=== PATIENT | female | born 1930 | race Caucasian/White ===

== ENCOUNTER 2017-06-10 09:29 | Observation (INO) | payer MEDICARE, BC ==
[2017-06-10] MEDS ORDERED: Sodium Chloride 0.9% 1,000 ML IV SCH ×2 (10:30→15:45)
[2017-06-10] MEDS ORDERED: Midazolam 1 MG/ML 2 ML SDV IVPUSH ONE (10:34)
[2017-06-10] MEDS ORDERED: cefTRIAXone 1,000 MG in Sodium Chloride 0.9% 50 ML IV SCH (10:45)
[2017-06-10] MEDS ORDERED: cefTRIAXone 1,000 MG VIAL IV ONE (11:00)
[2017-06-10] MEDS ORDERED: Azithromycin 500 MG in Sodium Chloride 0.9% 250 ML IV SCH (11:15)
[2017-06-10] MEDS: METOPROLOL SUCCINATE 50 MG PO SCH (11:40)
[2017-06-10] MEDS ORDERED: Ondansetron 4 MG Tab.DIS PO PRN (11:51)
[2017-06-10] MEDS ORDERED: Temazepam 7.5 MG Cap PO PRN (11:51)
--- NOTE | 2017-06-10 13:35 | CT ---
INDICATION: Delirium, urosepsis, confused. CT HEAD WITHOUT CONTRAST: Serial contiguous 2.5 and 5-mm sections were obtained through the brain without contrast, 06/10/2017, and compared with 04/30. Total Exam DLP = 845.81 mGy-cm. Minimal thickening of the lining is noted at the right maxillary antrum. There is thickening of the lining of one ethmoidal air cell. Paranasal sinuses were otherwise well aerated and unremarkable. Mastoid air cells were well aerated. No definite cranial abnormality was seen. A mild degree of nasal septal deviation to the right is noted. Calcifications are noted in the vertebral arteries and internal carotid arteries. No shift of midline structures was identified. Ventricles are slightly more prominent than on the previous study, compatible with progressive central atrophy of mild to moderate degree. There is some minimal periventricular white matter decrease compatible with minimal microvascular disease. No finding to suggest an acute abnormality, such as a bleeding site or hematoma was identified. No finding to strongly suggest an acute thrombotic CVA was seen. Orbits appear to be unremarkable. IMPRESSION: 1. Progressive central atrophy. 2. Minimal microvascular disease, also slightly progressive. 3. Arterial calcifications, as previously. 4. Minimal findings in the paranasal sinuses. Report was called to Dr. Molina at 1120 hours, 06/10/2017. [facility] CENTERFlorina
[2017-06-10] MEDS: Losartan 25 MG Tab PO SCH (15:02)
[2017-06-10] MEDS: Enoxaparin 30 MG/0.3 ML Syringe SUBCUT SCH (15:09)
[2017-06-10] MEDS ORDERED: Mirtazapine 15 MG Tab PO SCH (16:00)
[2017-06-10] MEDS ORDERED: traMADol 50 MG Tab PO PRN (16:17)
[2017-06-10] MEDS ORDERED: Metoprolol Succinate 50 MG Tab.ER PO SCH (16:30)
[2017-06-10] MEDS ORDERED: Losartan 50 MG Tab PO SCH (16:30)
--- NOTE | 2017-06-10 16:35 | CR ---
INDICATION: Delirium, confusion, urosepsis. CHEST: An AP upright view of the chest was obtained 06/10/2017 and revealed apparent necklace or apparel producing artifact overlying the upper-most lung - apical lung. The heart is enlarged. The aorta is somewhat tortuous with minimal calcification in the arch. A definite active infiltrate or effusion was not identified. Impingement is noted at the right shoulder joint with sclerosis of the undersurface of the acromion. Degenerative changes of mild to moderate degree are noted at the glenohumeral joints bilaterally. Prominence of the superior mediastinum on the right is likely due to either an azygos lobe with minimal infiltration or prominent brachiocephalic vessels in that area. This appearance was present previously and is simply emphasized by the AP positioning. There does appear to be a significant increase in heart size compared with 07/24/2009. IMPRESSION: No definite acute process. MTDD
[2017-06-10] MEDS ORDERED: Metoprolol Tartrate 50 MG Tab PO ONE (16:45)
[2017-06-10] MEDS ORDERED: QUEtiapine 25 MG Tab PO ONE (17:23)
--- NOTE | 2017-06-10 17:30 | PCM.HP ---
H&P History of Present Illness - General Date of Service: 06/10/17 Admit Problem/Dx: Admission Diagnosis/Problem Admission Diagnosis/Problem Pneumonia - History of Present Illness Initial Comments - Free Text/Narative: 86-year-old female brought in because of chills. The family went to [facility] today to go for physical therapy, and she complains of feeling cold and was having records. He also noted that she confused. Although she's had a slow mental decline, she has remained very sharp and independent including driving. Today she was making no sense and was markedly confused, using a cupped, hair. She does no seem to recognize family. There's been no cough no chest pain or shortness of breath. She has been treated for UTI and has completed a recent course of abx. She has a history of type 2 diabetes, hypertension that been very stable. No previous strokes or cardio vascular disease. - Related Data Allergies/Adverse Reactions: Allergies Allergy/AdvReac Type Severity Reaction Status Date / Time lisinopril Allergy Unknown Other Verified 06/10/17 09:49 Home Medications: Home Meds Allopurinol [Zyloprim] 100 mg PO DAILY PRN 06/10/17 [History] Citalopram Hydrobromide [Celexa] 20 mg PO DAILY 06/10/17 [History] Cyanocobalamin (Vitamin B12) [Vitamin B12] 1,000 mcg PO DAILY 06/10/17 [History] Glimepiride [Amaryl] 1 mg PO WITHBREAKFAST 06/10/17 [History] Losartan [Cozaar] 25 mg PO DAILY 06/10/17 [History] Metoprolol Succinate 50 mg PO DAILY 06/10/17 [History] Mirtazapine [Remeron] 7.5 mg PO BEDTIME 06/10/17 [History] Omeprazole [Omeprazole] 20 mg PO ACBREAKFAST 06/10/17 [History] metFORMIN HCl [Metformin HCl] 500 mg PO WITHBREAKFAST 06/10/17 [History] traMADol [Ultram] 25 mg PO DAILY PRN 06/10/17 [History] Past Medical History HEENT History: Reports: Hard of Hearing Cardiovascular History: Reports: Afib, High Cholesterol, Hypertension Respiratory History: Reports: Other (See Below) Other Respiratory History: Pt was diagnosed with pneumonia in the ER Gastrointestinal History: Reports: Diverticulosis, Other (See Below) Other Gastrointestinal History: Diaphramatic Hernia Genitourinary History: Reports: Other (See Below) Other Genitourinary History: UTI last week and was diagnosed 2.5 weeks ago. Pt was given antibiotics and finished antibiotics last week. 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 - Infectious Disease History Infectious Disease History: Reports: Mumps - Past Surgical History GI Surgical History: Reports: Colonoscopy Social & Family History - Family History Family Medical History: Noncontributory - Tobacco Use Smoking Status *Q: Never Smoker Second Hand Smoke Exposure: No - Caffeine Use Caffeine Use: Reports: Coffee - Recreational Drug Use Recreational Drug Use: No H&P Review of Systems - Review of Systems: Review Of Systems: ROS reveals no pertinent complaints other than HPI. Exam - Exam Exam: See Below - Vital Signs Vital Signs: Last Vital Signs Temp 99.2 F 06/10/17 15:50 Pulse 102 H 06/10/17 16:43 Resp 16 06/10/17 15:50 BP 174/110 H 06/10/17 16:43 Pulse Ox 96 06/10/17 15:50 Weight: 59.874 kg - Exam General: Alert, Oriented, 4 HEENT: PERRLA, Hearing Intact, Mucosa Moist & [place], Nares Patent, Normal Nasal Septum, Posterior Pharynx Clear, Conjunctiva Clear, EOMI, EACs Clear, TMs Clear Neck: Supple, Trachea Midline, 2 Lungs: Clear to Auscultation, Normal Respiratory Effort Cardiovascular: Regular Rate, Regular Rhythm GI/Abdominal Exam: Normal Bowel Sounds, Soft, Non-Tender, No Organomegaly, No Distention, No Abnormal Bruit, No Mass, Pelvis Stable (Female) Exam: Normal Bimanual Exam, Deferred Rectal (Female) Exam: Deferred Back Exam: Normal Inspection, Full Range of Motion, NT Extremities: Normal Inspection, Normal Range of Motion, Non-Tender, No Pedal Edema, Normal Capillary Refill Skin: Warm, Dry, Intact Neurological: Cranial Nerves Intact, Reflexes Equal Bilateral Neuro Extensive - Mental Status: Alert, Oriented x3, Normal Mood/Affect, Normal Cognition Neuro Extensive - Motor, Sensory, Reflexes: CN II-XII Intact, Normal Reflexes Psychiatric: Alert, Hallucinations - Patient Data Result Diagrams: 06/10/17 09:58 06/10/17 09:58 *Q Meaningful Use (ADM) - VTE *Q VTE Criteria *Q: - Stroke *Q Stroke Criteria *Q: - AMI *Q AMI Criteria *Q: - Problem List (1) Delirium SNOMED Code(s): 2913898 ICD Code: R41.0 - DISORIENTATION, UNSPECIFIED Status: Acute Current Visit : Yes (2) HTN (hypertension) SNOMED Code(s): 75199963 ICD Code: I10 - ESSENTIAL (PRIMARY) HYPERTENSION Status: Acute Current Visit: Yes Qualifiers: Hypertension type: essential hypertension Qualified Code(s): I10 - Essential (primary) hypertension (3) DM2 (diabetes mellitus, type 2) SNOMED Code(s): 90892685 ICD Code: E11.9 - TYPE 2 DIABETES MELLITUS WITHOUT COMPLICATIONS Status: Acute Current Visit: Yes (4) Rigors SNOMED Code(s): 62843369 ICD Code: R68.89 - OTHER GENERAL SYMPTOMS AND SIGNS Status: Acute Current Visit: Yes (5) CHF (congestive heart failure) SNOMED Code(s): 01604874 ICD Code: I50.9 - HEART FAILURE, UNSPECIFIED Status: Acute Current Visit : Yes Qualifiers: Congestive heart failure type: unspecified Congestive heart failure chronicity: unspecified Qualified Code(s): I50.9 - Heart failure, unspecified Problem List Initiated/Reviewed/Updated: Yes Orders Last 24hrs: Active Orders 24 hr Category Date Time Status Brain wo Cont [MR] Routine Exams 06/10/17 13:05 Taken CBC WITH AUTO DIFF [HEME] AM Lab 06/11/17 05:11 Ordered CRP [C-REACTIVE PROTEIN] [CHEM] Routine Lab 06/10/17 17:22 Ordered INFLUENZA A+B AG SCREEN [RM] Stat Lab 06/10/17 17:22 Uncollected TROPONIN I [CHEM] Routine Lab 06/10/17 17:22 Ordered Citalopram [Celexa] Med 06/11/17 09:00 Active 20 mg PO DAILY Glimepiride [Amaryl] Med 06/11/17 08:00 Active 1 mg PO WITHBREAKFAST Mirtazapine [Remeron] Med 06/10/17 21:00 Active 7.5 mg PO BEDTIME Omeprazole [Omeprazole] Med 06/11/17 07:30 Active 20 mg PO ACBREAKFAST QUEtiapine [SEROquel] Med 06/10/17 17:23 Once 25 mg PO ONETIME ONE cefTRIAXone [Rocephin] Med 06/11/17 11:00 Active 1,000 mg IV Q24H metFORMIN [Glucophage] Med 06/11/17 08:00 Active 500 mg PO WITHBREAKFAST Convert IV to Saline Lock [OM.PC] Routine Oth 06/10/17 16:28 Ordered Medication Orders Ceftriaxone Sodium (Rocephin) 1,000 mg IV Q24H [facility] Citalopram Hydrobromide (Celexa) 20 mg PO DAILY [facility] Enoxaparin Sodium (Lovenox) 30 mg SUBCUT Q24H [facility] Last Admin: 06/10/17 15:09 Dose: 30 mg Glimepiride (Amaryl) 1 mg PO WITHBREAKFAST [facility] Azithromycin 500 mg/ Sodium (Chloride) 250 mls @ 250 mls/hr IV Q24H [facility] Last Admin: 06/10/17 11:26 Dose: 250 mls/hr Levothyroxine Sodium (Levothyroxine) 25 mcg PO 0600 [facility] Losartan Potassium (Cozaar) 25 mg PO DAILY [facility] Last Admin: 06/10/17 15:02 Dose: 25 mg Metformin HCl (Glucophage) 500 mg PO WITHBREAKFAST [facility] Metoprolol Succinate (Toprol Xl) 50 mg PO DAILY [facility] Last Admin: 06/10/17 11:40 Dose: 50 mg Mirtazapine (Remeron) 7.5 mg PO BEDTIME [facility] Omeprazole 20 Mg Cap (*Ptom) 20 mg PO ACBREAKFAST [facility] Ondansetron HCl (Zofran Odt) 4 mg PO Q6H PRN PRN Reason: nausea, able to take PO Quetiapine Fumarate (Seroquel) 25 mg PO ONETIME ONE Stop: 06/10/17 17:24 Temazepam (Restoril) 7.5 mg PO BEDTIME PRN PRN Reason: Sleep Assessment/Plan Comment:: The chest x-ray reveals no acute process, but it could be congestive heart failure noted along with cardiomegaly.BNP is high. The CT was unremarkable with exception microvascular disease. MRI of the brain is been done. The source of infection, if any, is unclear. They sudden mental status symptoms change suggestive delirium is possibly due to infection, or cerebrovascular accident. I have discontinued IV fluids. I will give her cervical 25 g by mouth tonight one time, I will do a flu a and B, CRP and repeat a CBC and basic profile in morning. I've ordered for blood cultures and urine cultures. The official MRI report should be back in the morning to determine further course of action.
[2017-06-10] MEDS: MIRTAZAPINE 15 MG PO SCH (20:06)
[2017-06-10] MEDS ORDERED: Non-Formulary Medication 1 Each (Mirtazapine [Remeron] 7.5 MG) PO SCH (21:00)
[2017-06-11] MEDS: Levothyroxine 25 MCG Tab PO SCH (05:51)
[2017-06-11] MEDS: metFORMIN 500 MG Tab *PTOM PO SCH (07:33)
[2017-06-11] MEDS: GLIMEPIRIDE 2 MG PO SCH (07:34)
[2017-06-11] MEDS: Omeprazole 20 MG CAP *PTOM PO SCH (07:34)
[2017-06-11] MEDS: CITALOPRAM HYDROBROMIDE 40 MG PO SCH (08:57)
[2017-06-11] MEDS: METOPROLOL SUCCINATE 50 MG PO SCH (08:58)
[2017-06-11] MEDS: Losartan 25 MG Tab PO SCH (09:08)
[2017-06-11] MEDS ORDERED: cefTRIAXone 1,000 MG VIAL IV SCH (11:00)
[2017-06-11] MEDS ORDERED: Azithromycin 500 MG in Sodium Chloride 0.9% 250 ML IV SCH (11:15)
--- NOTE | 2017-06-11 11:56 | ER ---
DATE SEEN: 06/10/2017 TIME SEEN: Jennifer Ly was seen at 0935 hours this morning. /[id number] LINO/LOUIS
--- NOTE | 2017-06-11 13:41 | ER ---
DATE SEEN: 06/10/2017 HISTORY OF PRESENT ILLNESS: This 86-year-old woman, who lives at home at her residence and was noted to have confusion. Past medical history is significant for GERD, diabetes, gout, hypertension, depression, has pulmonary hypertension, presbycusis, hiatus hernia, dysthymia, and osteoarthritis. She has confusion and cannot tell any history to us. Family noted she was mumbling, she was worried about possible stroke or major infection. This morning, she woke up. She did not fall down, hit or hurt herself. She cannot tell me anything. She has a [place] score of 8. Eyes 4, verbal 2, motor 4. When I lift her arm, it does not fall in her face. PRIMARY EXAM: A. Airway is open and patent. B. Some rhonchi noted. Rales noted at the base of lungs posteriorly. C. Circulation, blood pressure 163/104, repeat 174/110, heart rate 102, respirations 16, oxygen saturation 96%, and temperature 37.3. Her daughter says she has not taken any of her medicines this morning. D. The patient has a [place] coma score of 10 with low moaning and verbal for a score of 2. The others are 4, eye is 4, and motor is 4. E. Patient Derm: No evidence for erythema, rash, lacerations, or cuts. SECONDARY SURVEY: HEENT: The patient is mumbling. She does not cooperate. Pupils do react to light. They have conjugate gaze. Eyegrounds are normal in appearance, except for aging. Hearing is indeterminate. She is mumbling, does not respond, occasionally will speak. She feels warm. NECK: No bruits. No masses in the neck. LUNGS: Rales noted in the lungs, bilateral posterior, anterior less. HEART: No irregularity. No murmur. ABDOMEN: Nontender. No guarding. No discomfort. 1+ pedal edema. MUSCULOSKELETAL: Deep tendon reflexes symmetrical, hypoactive in upper and lower extremities. NEUROLOGIC: Cranial nerves, difficult hearing, indeterminate. She cooperates with her eyes, but facial symmetry is intact. Gag is intact. Cranial nerves 2 through 12 intact with probable good hearing. She has fair muscle strength. Moves upper and lower extremities. IMAGING: CT of the head is with small vessel microvascular changes and age- related atrophy of the brain. No evidence for CVA. LABORATORY DATA: White count 6400, PMNs normal at 77, lymphs 16, and monos 5. Hemoglobin 15.6 and platelets 182,000. CMP; sodium 141, potassium 4.1, chloride 102, CO2 28, BUN 16, and creatinine 1.1. GFR 47. EGL-zv-tgzwsqznog ratio 14.5. Glucose 202. Troponin less than 0.017. BNP is 2753. TSH is 6.63. Urinalysis; cath specimen is moderate occult blood, 500 protein, few squamous, and few bacteria. ASSESSMENT AND PLAN: Chest x-ray suggests she has an infiltrate in the left lung. I plan to treat this infection. The patient given a dose of Rocephin IV. Her pressures came down with the use of her medicines. She had not taken her medicines this morning. Given a dose of 1 gram of ceftriaxone, citalopram 20 mg was given when she was admitted and enoxaparin for admission, glimepiride. She was given a dose of levothyroxine 25 mcg (new diagnosis of hypothyroidism). Urine culture is pending. Blood culture is pending. Other labs: C-reactive protein was ordered, but it is not on the chart. No evidence for urinary tract infection (this was surprising, thought she had urosepsis on initial evaluation). Free T3, free T4 performed. Results not back. C-reactive protein not back. EKG: Atrial fibrillation, borderline right axis. Heart rate 105. Nonspecific T-wave abnormalities in lateral leads. Patient status/message was left for Dr. Watkins for admission plan. The patient was started on antibiotics. /[id number] LINO/LOUIS
[2017-06-11] MEDS: Enoxaparin 30 MG/0.3 ML Syringe SUBCUT SCH (13:45)
[2017-06-11] MEDS: MIRTAZAPINE 15 MG PO SCH (20:48)
[2017-06-12] MEDS: Levothyroxine 25 MCG Tab PO SCH (05:53)
[2017-06-12] MEDS: GLIMEPIRIDE 2 MG PO SCH (08:07)
[2017-06-12] MEDS: Omeprazole 20 MG CAP *PTOM PO SCH (08:07)
[2017-06-12] MEDS: METOPROLOL SUCCINATE 50 MG PO SCH (08:08)
[2017-06-12] MEDS: metFORMIN 500 MG Tab *PTOM PO SCH (08:08)
[2017-06-12] MEDS: CITALOPRAM HYDROBROMIDE 40 MG PO SCH (08:09)
[2017-06-12] MEDS: Losartan 25 MG Tab PO SCH (08:10)
--- NOTE | 2017-06-12 10:37 | PCM.PN ---
- General Info Date of Service: 06/12/17 Admission Dx/Problem (Free Text): She states yesterday she had a little mild abdominal discomfort with deep inspiration but that's gone. She denies chest pain, fevers, chills, nasal congestion, ear pain. She has a little bit of a cough that's been their for a couple weeks. - Patient Data Vitals - Most Recent: Last Vital Signs Temp 97.7 F 06/12/17 08:00 Pulse 76 06/12/17 08:08 Resp 18 06/12/17 08:00 BP 164/107 H 06/12/17 08:10 Pulse Ox 99 06/12/17 08:00 Weight - Most Recent: 132 lb Lab Results Last 24 Hours: Laboratory Results - last 24 hr 06/11/17 06/11/17 06/12/17 Range/Units 16:33 20:57 06:32 POC Glucose 175 H (80-116) mg/dL Troponin I 0.192 H* 0.102 H* (<0.017-0.056) ng/mL Med Orders - Current: Current Medications Citalopram Hydrobromide (Celexa) 20 mg PO DAILY [facility] Last Admin: 06/12/17 08:09 Dose: 20 mg Enoxaparin Sodium (Lovenox) 30 mg SUBCUT Q24H [facility] Last Admin: 06/11/17 13:45 Dose: 30 mg Glimepiride (Amaryl) 1 mg PO WITHBREAKFAST [facility] Last Admin: 06/12/17 08:07 Dose: 1 mg Levothyroxine Sodium (Levothyroxine) 25 mcg PO 0600 [facility] Last Admin: 06/12/17 05:53 Dose: 25 mcg Losartan Potassium (Cozaar) 25 mg PO DAILY [facility] Last Admin: 06/12/17 08:10 Dose: 25 mg Metformin HCl (Glucophage) 500 mg PO WITHBREAKFAST [facility] Last Admin: 06/12/17 08:08 Dose: 500 mg Metoprolol Succinate (Toprol Xl) 50 mg PO DAILY [facility] Last Admin: 06/12/17 08:08 Dose: 50 mg Mirtazapine (Remeron) 7.5 mg PO BEDTIME [facility] Last Admin: 06/11/17 20:48 Dose: 7.5 mg Omeprazole 20 Mg Cap (*Ptom) 20 mg PO ACBREAKFAST [facility] Last Admin: 06/12/17 08:07 Dose: 20 mg Ondansetron HCl (Zofran Odt) 4 mg PO Q6H PRN PRN Reason: nausea, able to take PO Temazepam (Restoril) 7.5 mg PO BEDTIME PRN PRN Reason: Sleep Discontinued Medications Ceftriaxone Sodium (Rocephin) 1,000 mg IV ONETIME ONE Stop: 06/10/17 11:01 Last Admin: 06/10/17 11:11 Dose: 1,000 mg Ceftriaxone Sodium (Rocephin) 1,000 mg IV Q24H [facility] Last Admin: 06/11/17 10:24 Dose: 1,000 mg Sodium Chloride (Normal Saline) 1,000 mls @ 999 mls/hr IV ASDIRECTED [facility] Last Admin: 06/10/17 10:35 Dose: 999 mls/hr Azithromycin 500 mg/ Sodium (Chloride) 250 mls @ 250 mls/hr IV Q24H [facility] Last Admin: 06/10/17 11:26 Dose: 250 mls/hr Sodium Chloride (Normal Saline) 1,000 mls @ 100 mls/hr IV ASDIRECTED [facility] Last Admin: 06/10/17 15:51 Dose: 100 mls/hr Azithromycin 500 mg/ Sodium (Chloride) 250 mls @ 250 mls/hr IV Q24H [facility] Last Admin: 06/11/17 11:40 Dose: 250 mls/hr Metoprolol Tartrate (Lopressor) 50 mg PO ONETIME ONE Stop: 06/10/17 16:46 Last Admin: 06/10/17 16:43 Dose: 50 mg Midazolam HCl (Versed 1 Mg/Ml) 0.5 mg IVPUSH ONETIME ONE Stop: 06/10/17 10:35 Last Admin: 06/10/17 15:31 Dose: Not Given Mirtazapine (Remeron) 7.5 mg PO ONETIME [facility] Quetiapine Fumarate (Seroquel) 25 mg PO ONETIME ONE Stop: 06/10/17 17:24 Last Admin: 06/10/17 18:19 Dose: 25 mg Tramadol HCl (Ultram) 25 mg PO DAILY PRN PRN Reason: Pain - Exam General: Alert, Oriented Lungs: Clear to Auscultation, Normal Respiratory Effort Cardiovascular: Regular Rate, Regular Rhythm, No Murmurs Extremities: No Pedal Edema - Problem List & Annotations (1) Acute [place] SNOMED Code(s): 63103571 Code(s): I21.9 - ACUTE MYOCARDIAL INFARCTION, UNSPECIFIED Status: Acute Current Visit: Yes (2) Bronchitis SNOMED Code(s): 44612413 Code(s): J40 - BRONCHITIS, NOT SPECIFIED ACUTE OR CHRONIC Status: Acute Current Visit: Yes - Problem List Review Problem List Initiated/Reviewed/Updated: Yes - My Orders Last 24 Hours: My Active Orders 06/11/17 12:07 Accu Check [Blood Glucose Check, Bedside] [RC] BIDMEALS 06/11/17 12:08 EKG 12 Lead [EK] Routine 06/11/17 Dinner Consistent Carbohydrate Diet [DIET] - Plan Plan:: 1. Discharge to home on home health. 2. She is already on a beta justin and aspirin. 3. Andree-Jaime.
--- NOTE | 2017-06-12 10:51 | PCM.DCSUM1 ---
Discharge Summary - Hospital Course Free Text/Narrative:: Hospital course-patient was admitted had a CT and MRI of the head. Both showed age-related changes and signs of infarct. She was confused when she came in the evening with chills by the next morning she is asymptomatic. We will watch her for 48 hours and she remained asymptomatic. Chest x-ray showed no pneumonia urine showed no UTI. I believe there was a TSH done but Shaman slightly elevated at 6 in the ER doc started levothyroxine. I will stop back and have it rechecked in the clinic. Patient's troponin was slightly elevated. EKG showed atrial fibrillation no ST abnormalities. Newly diagnosis I can come up with was a small ID. She started a beta justin and aspirin. She did have a little bit of cough that's been there for a few weeks. I'll send her home on some Zithromax. Brief History: 86-year-old female brought in because of chills. The [place] went [place] to go for physical therapy, and she complains of feeling cold and was having records. He also noted that she confused. Although she's had a slow mental decline, she has remained very sharp and independent including driving. Today she was making no sense and was markedly confused, using a cupped , hair. She does no seem to recognize family. There's been no cough no chest pain or shortness of breath. She has been treated for UTI and has completed a recent course of abx. She has a history of type 2 diabetes, hypertension that been very stable. No previous strokes or cardio vascular disease. - Discharge Data Discharge Date: 06/12/17 Discharge Disposition: Home, Self-Care 01 Condition: Fair - Discharge Diagnosis/Problem(s) (1) Acute ID SNOMED Code(s): 85505049 ICD Code: I21.9 - ACUTE MYOCARDIAL INFARCTION, UNSPECIFIED Status: Acute Current Visit: Yes (2) Bronchitis SNOMED Code(s): 37085207 ICD Code: J40 - BRONCHITIS, NOT SPECIFIED ACUTE OR CHRONIC Status: Acute Current Visit: Yes - Patient Instructions Diet: Diabetic Diet Activity: As Tolerated Driving: Do Not Drive Showering/Bathing: May Shower Notify Provider of: Fever, Increased Pain, Swelling and Redness, Drainage, Nausea and/or Vomiting Other/Special Instructions: 1. Recheck with Dr. Kolb in 2 weeks. Appointment is already made. Check TSH with the appointment. 2. Home health tell manage medications, strengthening, home safety and also physical therapy in the home. - Discharge Plan Prescriptions/Med Rec: Azithromycin [Zithromax] 250 mg PO DAILY #6 tab Home Medications: Home Meds Allopurinol [Zyloprim] 100 mg PO DAILY PRN 06/10/17 [History] Citalopram Hydrobromide [Celexa] 20 mg PO DAILY 06/10/17 [History] Cyanocobalamin (Vitamin B12) [Vitamin B12] 1,000 mcg PO DAILY 06/10/17 [History] Glimepiride [Amaryl] 1 mg PO WITHBREAKFAST 06/10/17 [History] Losartan [Cozaar] 25 mg PO DAILY 06/10/17 [History] Metoprolol Succinate 50 mg PO DAILY 06/10/17 [History] Mirtazapine [Remeron] 7.5 mg PO BEDTIME 06/10/17 [History] Omeprazole 20 mg PO ACBREAKFAST 06/10/17 [History] metFORMIN HCl [Metformin HCl] 500 mg PO WITHBREAKFAST 06/10/17 [History] traMADol [Ultram] 25 mg PO DAILY PRN 06/10/17 [History] Azithromycin [Zithromax] 250 mg PO DAILY #6 tab 06/12/17 [Rx] Patient Handouts: Venous Thromboembolism Prevention - Discharge Summary/Plan Comment DC Time >30 min.: No - Patient Data Vitals - Most Recent: Last Vital Signs Temp 97.7 F 06/12/17 08:00 Pulse 76 06/12/17 08:08 Resp 18 06/12/17 08:00 BP 164/107 H 06/12/17 08:10 Pulse Ox 99 06/12/17 08:00 Weight - Most Recent: 132 lb Lab Results - Last 24 hrs: Laboratory Results - last 24 hr 06/11/17 06/11/17 06/12/17 Range/Units 16:33 20:57 06:32 POC Glucose 175 H (80-116) mg/dL Troponin I 0.192 H* 0.102 H* (<0.017-0.056) ng/mL Med Orders - Current: Current Medications Citalopram Hydrobromide (Celexa) 20 mg PO DAILY [facility] Last Admin: 06/12/17 08:09 Dose: 20 mg Enoxaparin Sodium (Lovenox) 30 mg SUBCUT Q24H [facility] Last Admin: 06/11/17 13:45 Dose: 30 mg Glimepiride (Amaryl) 1 mg PO WITHBREAKFAST [facility] Last Admin: 06/12/17 08:07 Dose: 1 mg Levothyroxine Sodium (Levothyroxine) 25 mcg PO 0600 [facility] Last Admin: 06/12/17 05:53 Dose: 25 mcg Losartan Potassium (Cozaar) 25 mg PO DAILY [facility] Last Admin: 06/12/17 08:10 Dose: 25 mg Metformin HCl (Glucophage) 500 mg PO WITHBREAKFAST [facility] Last Admin: 06/12/17 08:08 Dose: 500 mg Metoprolol Succinate (Toprol Xl) 50 mg PO DAILY [facility] Last Admin: 06/12/17 08:08 Dose: 50 mg Mirtazapine (Remeron) 7.5 mg PO BEDTIME [facility] Last Admin: 06/11/17 20:48 Dose: 7.5 mg Omeprazole 20 Mg Cap (*Ptom) 20 mg PO ACBREAKFAST [facility] Last Admin: 06/12/17 08:07 Dose: 20 mg Ondansetron HCl (Zofran Odt) 4 mg PO Q6H PRN PRN Reason: nausea, able to take PO Temazepam (Restoril) 7.5 mg PO BEDTIME PRN PRN Reason: Sleep Discontinued Medications Ceftriaxone Sodium (Rocephin) 1,000 mg IV ONETIME ONE Stop: 06/10/17 11:01 Last Admin: 06/10/17 11:11 Dose: 1,000 mg Ceftriaxone Sodium (Rocephin) 1,000 mg IV Q24H [facility] Last Admin: 06/11/17 10:24 Dose: 1,000 mg Sodium Chloride (Normal Saline) 1,000 mls @ 999 mls/hr IV ASDIRECTED [facility] Last Admin: 06/10/17 10:35 Dose: 999 mls/hr Azithromycin 500 mg/ Sodium (Chloride) 250 mls @ 250 mls/hr IV Q24H [facility] Last Admin: 06/10/17 11:26 Dose: 250 mls/hr Sodium Chloride (Normal Saline) 1,000 mls @ 100 mls/hr IV ASDIRECTED [facility] Last Admin: 06/10/17 15:51 Dose: 100 mls/hr Azithromycin 500 mg/ Sodium (Chloride) 250 mls @ 250 mls/hr IV Q24H [facility] Last Admin: 06/11/17 11:40 Dose: 250 mls/hr Metoprolol Tartrate (Lopressor) 50 mg PO ONETIME ONE Stop: 06/10/17 16:46 Last Admin: 06/10/17 16:43 Dose: 50 mg Midazolam HCl (Versed 1 Mg/Ml) 0.5 mg IVPUSH ONETIME ONE Stop: 06/10/17 10:35 Last Admin: 06/10/17 15:31 Dose: Not Given Mirtazapine (Remeron) 7.5 mg PO ONETIME [facility]ER Quetiapine Fumarate (Seroquel) 25 mg PO ONETIME ONE Stop: 06/10/17 17:24 Last Admin: 06/10/17 18:19 Dose: 25 mg Tramadol HCl (Ultram) 25 mg PO DAILY PRN PRN Reason: Pain *Q Meaningful Use (DIS) - VTE *Q VTE Criteria *Q: - Stroke *Q Stroke Criteria *Q: - AMI *Q AMI Criteria *Q:
== END 2017-06-12 12:55 | disposition home or self-care (01) ==
LOC: FB.ED 09:29 → FB.MS 11:51
PROVIDERS: ADMIT Family Medicine; ATTEND Family Medicine
DX: I21.9 Acute myocardial infarction, unspecified (principal); J40 Bronchitis, not specified as acute or chronic; I10 Essential (primary) hypertension; E78.00 Pure hypercholesterolemia, unspecified; F32.9 Major depressive disorder, single episode, unspecified; E11.9 Type 2 diabetes mellitus without complications; Z79.2 Long term (current) use of antibiotics; Z79.84 Long term (current) use of oral hypoglycemic drugs; Z79.899 Other long term (current) drug therapy; Z88.8 Allergy status to other drugs, medicaments and biological substances
CPT/HCPCS: 36415; 70450; 70551; 71045; 80053; 81001; 82962; 83605; 83880; 84439; 84443; 84481; 84484; 85025; 86140; 87040; 87086; 87804; 93005; 96361; 96365; 96366; 96372; 96375; 99285; A9270; G0378; J0456; J0696; J1650; J7040; J7050